=== PATIENT | female | born 1950 | race Asian ===

== ENCOUNTER → 2017-04-27 | Outpatient (CLI) | payer OTHER, MEDICAID | LOC: BMCIMAGING 14:54 | PROVIDERS: ATTEND Physician Assistant | DX: Z12.31 Encounter for screening mammogram for malignant neoplasm of breast (principal) | CPT/HCPCS: G0202 ==

== ENCOUNTER → 2017-05-24 | Outpatient (CLI) | payer OTHER, MEDICAID | LOC: BMCIMAGING 11:02 | PROVIDERS: ATTEND Physician Assistant | DX: R92.8 Other abnormal and inconclusive findings on diagnostic imaging of breast (principal) | CPT/HCPCS: G0206 ==